=== PATIENT | female | born 1990 | race Caucasian/White ===

== ENCOUNTER 2018-09-21 19:50 | Inpatient (IN) | payer SELFPAY ==
[~2018-09-21 19:50] MED LIST: ISOVUE-370 76%-LOCM 1 ML ONE
[2018-09-21] MEDS ORDERED: Fentanyl 100 MCG/2 ML VIAL ONE ×3 (20:00→21:45)
[2018-09-21] MEDS ORDERED: Ondansetron PF 4 MG/2 ML Vial ONE (20:38)
[2018-09-21 20:41] LABS: Hemoglobin 14.8 g/dL (12.0-16.0); Mean Corpuscular HGB CONC 34.3 g/dL (32.0-36.0); Mean Corpuscular Hemoglobin 31.9 pg (27.0-31.0); Mean Corpuscular Volume 92.9 fL (78.0-98.0); Mean Platelet Volume 7.2 fL (7.4-10.4); Platelet Count 349 thou/uL (130-400); RBC Distribution Width 11.5 % (11.5-14.5); Red Blood Cell (RBC) Count 4.64 mill/uL (4.20-5.40); White Blood Cell (WBC) Count 23.1 thou/uL (4.8-10.8)
[2018-09-21 20:43] LABS: BHCG - Serum Negative (NEGATIVE); Pregs Control Background? CLEAR/WHITE (CLR/WHITE); Pregs Control Bar Appear? YES (CONTROL BAR)
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
[2018-09-21 20:47] LABS: PTT 21.4 SEC (22.9-36.1); Prothrombin Time 13.2 SEC (12.0-14.7)
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
[2018-09-21 20:51] LABS: ALT (SGPT) 98 U/L (8-55); AST (SGOT) 99 U/L (5-34); Albumin 4.2 g/dL (3.5-5.0); Alkaline Phosphatase 62 U/L (40-150); Anion Gap 17 mmol/L (10-20); BUN (Urea Nitrogen) 11 mg/dL (7.0-18.7); Bilirubin, Total 0.3 mg/dL (0.2-1.2); Calc. Creatinine Clearance 0 mL/min (70-130); Calcium 9.4 mg/dL (7.8-10.44); Carbon Dioxide 25 mmol/L (22-29); Chloride 101 mmol/L (98-107); Estimated GFR-MDRD 87; Globulin 3.6 g/dL (2.4-3.5); Glucose 189 mg/dL (70-105); Lipase 44 U/L (8-78); Protein, Total 7.8 g/dL (6.0-8.3); Sodium 139 mmol/L (136-145)
[2018-09-21 21:01] LABS: Band 6 % (5-11); Lymphocytes 22 % (21-51); MDiff Complete? YES; Monocytes 3 % (0-10); Neutrophil 69 % (42-75)
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
[2018-09-21] MEDS ORDERED: Dextrose 50% Abboject 50 ML SYRINGE SLOW IVP PRN (21:50)
[2018-09-21] MEDS ORDERED: Dextrose 5% in Water 1,000 ML IV PRN (21:50)
[2018-09-21] MEDS ORDERED: hydrALAZINE 20 MG/ML VIAL SLOW IVP PRN (21:50)
[2018-09-21] MEDS ORDERED: Ondansetron PF 4 MG/2 ML Vial IVP PRN (21:50)
[2018-09-21] MEDS ORDERED: traMADol HCl 50 MG TAB PO PRN (21:58)
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
[2018-09-21 23:52] VITALS: BMI 32.0
[2018-09-22] MEDS: Acetaminophen 500 MG TAB PO SCH ×5 (00:50→23:56)
[2018-09-22] MEDS: traMADol HCl 50 MG TAB PO PRN ×2 (01:52→16:49)
[2018-09-22] MEDS: Sodium Chloride 0.9% 1,000 ML IV SCH ×2 (01:54→16:54)
[2018-09-22 05:41] LABS: #Lymphocytes 1.2 thou/uL (1.20-3.40); #Monocytes 0.7 thou/uL (0.11-0.59); #Neutrophils 10.6 thou/uL (1.40-6.50); %Basophils 0.1 % (0.0-1.0); %Eosinophils 0.2 % (0.0-10.0); %Lymphocytes 9.7 % (21.0-51.0); %Monocytes 5.5 % (0.0-10.0); %Neutrophils 84.6 % (42.0-75.0); Hemoglobin 13.2 g/dL (12.0-16.0); Mean Corpuscular HGB CONC 35.6 g/dL (32.0-36.0); Mean Corpuscular Hemoglobin 32.2 pg (27.0-31.0); Mean Corpuscular Volume 90.4 fL (78.0-98.0); Mean Platelet Volume 6.5 fL (7.4-10.4); Platelet Count 331 thou/uL (130-400); RBC Distribution Width 11.5 % (11.5-14.5); Red Blood Cell (RBC) Count 4.11 mill/uL (4.20-5.40); White Blood Cell (WBC) Count 12.5 thou/uL (4.8-10.8)
[2018-09-22 05:50] LABS: Phosphorus 2.8 mg/dL (2.3-4.7)
[2018-09-22 05:54] LABS: ALT (SGPT) 87 U/L (8-55); AST (SGOT) 87 U/L (5-34); Albumin 3.9 g/dL (3.5-5.0); Alkaline Phosphatase 48 U/L (40-150); Anion Gap 14 mmol/L (10-20); BUN (Urea Nitrogen) 13 mg/dL (7.0-18.7); Bilirubin, Total 0.4 mg/dL (0.2-1.2); Calc. Creatinine Clearance 126 mL/min (70-130); Carbon Dioxide 21 mmol/L (22-29); Chloride 106 mmol/L (98-107); Estimated GFR-MDRD Greater than 90; Glucose 189 mg/dL (70-105); Potassium 4.6 mmol/L (3.5-5.1); Protein, Total 6.9 g/dL (6.0-8.3); Sodium 136 mmol/L (136-145)
--- NOTE | 2018-09-22 07:07 | CT ---
CT HEAD NONCONTRAST: Date: 09/22/18 INDICATION: Follow-up, bifrontal subdural hematoma. Reference made to exam from previous day. FINDINGS: Minute volume of extra-axial increased density overlying each frontal convexity is redemonstrated. Th ere is no new mass effect or significant edema. No ventriculomegaly or midline shift. IMPRESSION: 1. Minute extra-axial density overlying the bifrontal convexities is redemonstrated. Given component of linear configuration, a portion of this could relate to traversing cortical veins. Minimal superi mposed extra-axial blood products may remain. 2. Posterior scalp injury is present with overlying skin fallon. POS: [facility]
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
[2018-09-22] MEDS: Famotidine 20 MG TAB PO SCH ×2 (10:34→20:44)
[2018-09-22] MEDS: Polyethylene Glycol 3350 17 GM Packet PO SCH (10:34)
[2018-09-22] MEDS: Senokot S 8.6-50 MG TAB PO SCH ×2 (10:34→20:44)
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
[2018-09-22] MEDS: Ondansetron ODT 4 MG TAB PO PRN (12:46)
[2018-09-22] MEDS ORDERED: Ibuprofen 600 MG TAB PO PRN (14:54)
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
[2018-09-23] MEDS: Sodium Chloride 0.9% 1,000 ML IV SCH (03:55)
[2018-09-23] MEDS: Acetaminophen 500 MG TAB PO SCH ×2 (05:11→12:22)
[2018-09-23] MEDS: Ondansetron ODT 4 MG TAB PO PRN (05:19)
[2018-09-23] MEDS: Famotidine 20 MG TAB PO SCH (09:04)
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
[2018-09-23] MEDS: Polyethylene Glycol 3350 17 GM Packet PO SCH (12:21)
[2018-09-23] MEDS: Senokot S 8.6-50 MG TAB PO SCH (12:21)
[2018-09-23 12:22] VITALS: BP 124/80; TEMP 98.6
[2018-09-23] MEDS: traMADol HCl 50 MG TAB PO PRN (12:22)
== END 2018-09-23 14:52 | disposition home or self-care (01) | DRG 562 ==
LOC: ERS 19:50 → IMCU/EMU 21:58 → SURG A 09-22 15:36
PROVIDERS: ADMIT Specialist; ATTEND Specialist
DX: S42.332A Displaced oblique fracture of shaft of humerus, left arm, initial encounter for closed fracture (principal); S06.5X0A Traumatic subdural hemorrhage without loss of consciousness, initial encounter; S06.0X0A Concussion without loss of consciousness, initial encounter; V49.40XA Driver injured in collision with unspecified motor vehicles in traffic accident, initial encounter; Y92.9 Unspecified place or not applicable; J45.909 Unspecified asthma, uncomplicated; D75.9 Disease of blood and blood-forming organs, unspecified; R40.2412 Glasgow coma scale score 13-15, at arrival to emergency department; Z88.1 Allergy status to other antibiotic agents
CPT/HCPCS: 24505; 36415; 70450; 71260; 72125; 74177; 80053; 83690; 83735; 84100; 84703; 85025; 85610; 85730; 86850; 86900; 86901; 96374; 96375; 96376; G0390; J2405; J3010; Q0162; Q9966

== ENCOUNTER 2018-09-29 22:09 | Emergency (ER) | payer SELFPAY | END 2018-09-29 22:55 | disposition home or self-care (01) | LOC: SCSER 22:09 | DX: R60.0 Localized edema (principal); J45.909 Unspecified asthma, uncomplicated | CPT/HCPCS: 99281 ==

== ENCOUNTER 2022-07-19 12:39 | Emergency (ER) | payer SELFPAY ==
[2022-07-19 14:32] LABS: #Basophils 0.1 thou/uL (0.0-0.2); #Eosinphils 0.1 thou/uL (0.0-0.7); #Lymphocytes 1.5 thou/uL (1.20-3.40); #Monocytes 0.3 thou/uL (0.11-0.59); #Neutrophils 12.8 thou/uL (1.40-6.50); %Basophils 0.4 % (0.0-1.0); %Eosinophils 0.4 % (0.0-10.0); %Lymphocytes 10.2 % (21.0-51.0); %Monocytes 2.3 % (0.0-10.0); %Neutrophils 86.7 % (42.0-75.0); Hemoglobin 15.9 g/dL (12.0-16.0); Mean Corpuscular HGB CONC 34.4 g/dL (32.0-36.0); Mean Corpuscular Hemoglobin 31.9 pg (27.0-31.0); Mean Corpuscular Volume 92.6 fl (78.0-98.0); Mean Platelet Volume 6.4 fL (7.4-10.4); Platelet Count 399 10x3/uL (130-400); RBC Distribution Width 11.4 % (11.5-14.5); Red Blood Cell (RBC) Count 4.99 mill/uL (4.20-5.40); White Blood Cell (WBC) Count 14.7 10x3/uL (4.8-10.8)
[2022-07-19] MEDS ORDERED: Iopamidol-370 76% 500 ML 1 ML ONE (14:36)
[2022-07-19 14:44] LABS: BHCG - Serum Negative (NEGATIVE); Pregs Control Background? CLEAR/WHITE (CLR/WHITE); Pregs Control Bar Appear? YES (CONTROL BAR)
[2022-07-19 14:58] LABS: ALT (SGPT) 51 U/L (8-55); AST (SGOT) 24 U/L (5-34); Albumin 4.6 g/dL (3.5-5.0); Alkaline Phosphatase 67 U/L (40-110); Anion Gap 16 mmol/L (10-20); BUN (Urea Nitrogen) 12 mg/dL (7.0-18.7); Bilirubin, Total 0.4 mg/dL (0.2-1.2); Calc. Creatinine Clearance 0 mL/min (70-130); Calcium 9.8 mg/dL (7.8-10.44); Carbon Dioxide 23 mmol/L (22-29); Chloride 102 mmol/L (98-107); Estimated GFR 119; Globulin 3.5 g/dL (2.4-3.5); Glucose 179 mg/dL (70-105); Potassium 4.5 mmol/L (3.5-5.1); Protein, Total 8.1 g/dL (6.0-8.3); Sodium 136 mmol/L (136-145)
[2022-07-19] MEDS ORDERED: Morphine 4 MG/ML VIAL ONE (14:58)
[2022-07-19] MEDS ORDERED: Ondansetron PF 4 MG/2 ML Vial ONE (14:58)
[2022-07-19 15:16] LABS: Bacteria/HPF 2+ HPF (None Seen); Bilirubin Negative (Negative); Blood, Urine 3+ (Negative); Clarity Turbid (Clear); Glucose, Urine (Dipstick) Normal (Negative); Ketone, Urine Negative (Negative); Leukocyte Negative Leu/uL (Negative); Nitrite Negative (Negative); Protein, Urine (Dipstick) 20 mg/dL (Neg-Trace); RBC/HPF Greater than 50 HPF (0-3); Specific Gravity, Urine 1.021 (1.002-1.036); Squamous Epithelial 21-50 HPF (0-3); Urobilinogen Normal mg/dL (Less than 2); WBC/HPF 0-3 HPF (0-3); pH, Urine 5.5 (5.0-9.0)
[2022-07-19 15:25] LABS: Pregnancy Test - Urine (BHCG) Negative (Negative); Pregu Control Background? CLEAR/WHITE (CLR/WHITE); Pregu Control Bar Appear? YES (CONTROL BAR); Specific Gravity 1.021 (1.002-1.036)
== END 2022-07-19 17:06 | disposition home or self-care (01) ==
LOC: ERS 12:39
DX: N83.201 Unspecified ovarian cyst, right side (principal); R11.2 Nausea with vomiting, unspecified; D72.829 Elevated white blood cell count, unspecified
CPT/HCPCS: 36415; 74177; 80053; 81003; 81015; 81025; 84703; 85025; 96374; 96375; J2270; J2405; Q9967